=== PATIENT | female | born 1960 | race Caucasian/White ===

== ENCOUNTER → 2017-11-15 | Outpatient (CLI) | payer OTHER, SELFPAY | DX: R56.9 Unspecified convulsions (principal); Z79.899 Other long term (current) drug therapy; Z51.81 Encounter for therapeutic drug level monitoring | CPT/HCPCS: 36415; 80053; 80177; 85025 ==

== ENCOUNTER 2025-11-19 09:52 | Outpatient (CLI) | payer OTHER, MEDICARE, SELFPAY ==
--- OUTSIDE RECORDS SUMMARY | 2025-11-08 10:15 | XMS_ITS | Encounter Summary ---
Author Organization [employer] ([place], [place], [place], [place], [place]) Address [address] [place] [address] Care Team Providers Care Oracle Database Analyst Name Role Phone Martell Ventura MD Primary Care Provider [phone] Reason for Visit * Reason Comments Seizures Encounter Details Date Type Department Care Team (Late st Contact Info) Description 11/08/2025 10:15 AM EST Office Visit [facility] - [facility] [address] [facility] [address] [place] [address] Elizabeth Kirkpatrick MD [address] [facility] [address] [place] [address] B12 deficiency (Primary Dx); Seizure (HCC); Vitamin D deficiency; Polyneuropathy Social History Tobacco Use Types Packs/Day Years Used Date Smoking Tobacco: Never Smokeless Tobacco: Never Tobacco Cessation:Counseling Given: Not Answered Alcohol Use Standard Drinks/Week Comments Yes 0 (1 standard drink = 0.6 oz pur e alcohol) Family and Community Support Answer Allen e Recorded Help with Day to Day Activities Not on file 12/05/2023 Feeling Lonely or Isolated Not on file 12/05 Educational Attainment Answer Date Abelardo rded Speak language other than Singaporean at home Not on file 12/05/2023 Want help with school or training Not on file 12/05/2023 Substance Use Answer Date Recorded Used prescription meds for non-medical reasons N ot on file 12/05/2023 Used illegal drugs past 12 months Not on file 12/05/2023 Comments Unknown Sex and Gender Information Value Date Recorded Sex Assigned at Not on file Legal Sex Female 4:58 PM CDT Gender Identity Not on file Sexual Orientation Not on file documented as of this encounter Last Filed Vital Signs Vital Sign Reading Time Taken Comments Blood Pressure 171/85 11/08/2025 10:21 AM EST Pulse 69 11/08/2025 10:21 AM EST Temperature - - Respiratory Rate - - Oxygen Saturation - - Inhaled Oxygen Concentration - - Weight 62.1 kg (137 lb) 11/08/2025 10:21 AM EST Height 152.4 cm (5') 11/08/2025 10:21 AM EST Body Mass Index 26.76 11/08/2025 10:21 AM EST documented in this encounter Functional Status * BP Answer Date of Assessment Author 17111/08/2025 10:21 AM Mary Juarez CMA * Pulse Answer Date of Assessment Author 69 11/08/2025 10:21 AM Mary Juarez CMA * Height Answer Date of Assessment Author 60 11/08/2025 10:21 AM Mary Juarez CMA * Weight Answer Date of Assessment Author 2192 11/08/2025 10:21 AM Mary Juarez ACADEMIC DEAN * Tidal Volume Answer Date of Assessment Author 270 11/08/2025 10:21 AM Mary Juarez CMA * Shock Index Answer Date of Assessment Author 0.4 11/08/2025 10:21 AM Mary Juarez ACADEMIC DEAN * BMI (Calculated) Answer Date of Assessment Author 26.8 11/08/2025 10:21 AM Mary Juarez CMA * BP Answer Date of Assessment Author 17111/08/2025 10:21 AM Mary Juarez ACADEMIC DEAN * Pulse Answer Date of Assessment Author 69 11/08/2025 10:21 AM Mary Juarez CMA * BMI (Calculated) Answer Date of Assessment Author 26.8 11/08/2025 10:21 AM Mary Juarez ACADEMIC DEAN documented as of this encounter Mental Status * BP Answer Entry Date Author 17111/08/2025 10:21 AM Mary Juarez ACADEMIC DEAN * Pulse Answer Entry Date Author 69 11/08/2025 10:21 AM Mary Juarez CMA * Height Answer Entry Date Author 60 11/08/2025 10:21 AM Mary Juarez CMA * Weight Answer Entry Date Author 2192 11/08/2025 10:21 AM Mary Juarez CMA * Tidal Volume Answer Entry Date Author 270 11/08/2025 10:21 AM Mary Juarez CMA * Shock Index Answer Entry Date Author 0.4 11/08/2025 10:21 AM Mary Juarez CMA * BMI (Calculated) Answer Entry Date Author 26.8 11/08/2025 10:21 AM Mary Juarez CMA documented in this encounter Progress Notes * Elizabeth Kirkpatrick MD - 11/08/2025 10:15 AM EST Subjective Argelia Gordon is a 65 y.o. female Chief Complaint Patient presents with Seizures I have reviewed and/or updated the following: Tobacco Allergies Meds Problems Med Hx Surg Hx Fam Hx History of Present Illness She has a history of epilepsy. Well controlled on Keppra and Vimpat. No adverse reactions. Has been under stress. She is taking care of mother who has colon cancer. Sleep is good No new health issues. Review of Systems Neurological: Positive for seizures. All other systems reviewed and are negative. . Radiology Results (last 7 days) No results found for the last 168 hours. No visits with results within 1 Day(s) from this visit. Latest known visit with results is: Office Visit on 10/08/2023 Component Date Value Ref Range Status Vitamin D, 25-Hydroxy 10/08/2023 26.2 (L) 30.0 - 100.0 ng/mL Final Comment: Vitamin D deficiency has been defined by the [place] of Medicine and an Endocrine Society practice guideline as a level of serum 25-OH vitamin D less than 20 ng/mL (1,2). The Endocrine Society went on to further define vitamin D insufficiency as a level between 21 and 29 ng/mL (2). 1. IOM ([place] of Medicine). 2010. Dietary reference intakes for calcium and D. [place]: The National Academies Press. 2. Timo MF, Cachorro NC, Gerald HAGAN, et al. Evaluation, treatment, and prevention of vitamin D deficiency: an Endocrine Society clinical practice guideline. JCEM. 2010; 96(7):1911-30. Vitamin B12 10/08/2023 >2000 (H) 232 - 1245 pg/mL Final Folate (Folic Acid), Serum 10/08/2023 >20.0 >3.0 ng/mL Final Comment: A serum folate concentration of less than 3.1 ng/mL is considered to represent clinical deficiency. Glucose, Serum 10/08/2023 96 70 - 99 mg/dL Final BUN 10/08/2023 13 8 - 27 mg/dL Final Creatinine, Serum 10/08/2023 0.83 0.57 - 1.00 mg/dL Final EGFR 10/08/2023 79 >59 mL/min/1.73 Final BUN/Creatinine Ratio 10/08/2023 16 12 - 28 Final Sodium, Serum 10/08/2023 141 134 - 144 mmol/L Final Potassium, Serum 10/08/2023 4.4 3.5 - 5.2 mmol/L Final Chloride, Serum 10/08/2023 101 96 - 106 mmol/L Final Carbon Dioxide, Total 10/08/2023 26 20 - 29 mmol/L Final Calcium, Serum 10/08/2023 9.7 8.7 - 10.3 mg/dL Final Protein, Total, Serum 10/08/2023 7.3 6.0 - 8.5 g/dL Final Albumin, Serum 10/08/2023 4.7 3.9 - 4.9 g/dL Final Globulin, Total 10/08/2023 2.6 1.5 - 4.5 g/dL Final A/G Ratio 10/08/2023 1.8 1.2 - 2.2 Final Bilirubin, Total 10/08/2023 0.3 0.0 - 1.2 mg/dL Final Alkaline Phosphatase, S 10/08/2023 125 (H) 44 - 121 IU/L Final AST (SGOT) 10/08/2023 20 0 - 40 IU/L Final ALT (SGPT) 10/08/2023 14 0 - 32 IU/L Final Results Objective BP (!) 171/85 Pulse 69 Ht 1.524 m (5') Wt 62.1 kg (137 lb) BMI 26.76 kg/m?? Neurological Exam Mental Status Awake, alert and oriented to person, place and time. Speech is normal. Language is fluent with no aphasia. Attention and concentration are normal. Fund of knowledge is appropriate for level of education. Cranial Nerves CN II: Visual acuity is normal. Visual bobo full to confrontation. CN III, IV, : Extraocular movements intact bilaterally. Normal lids and orbits bilaterally. Pupils equal round and reactive to light bilaterally. CN V: Facial sensation is normal. CN VII: Full and symmetric facial movement. CN VIII: Hearing is normal. CN IX, X: Palate elevates symmetrically. Normal gag reflex. CN XI: Shoulder shrug strength is normal. CN XII: Tongue midline without atrophy or fasciculations. Motor Normal muscle bulk throughout. Normal muscle tone. Strength is 5/5 throughout all four extremities. Sensory Light touch is normal in upper and lower extremities. Reflexes Right Plantar: downgoing Left Plantar: downgoing Coordination [id number], rapid alternating movements and pqlb-[id number] normal bilaterally without dysmetria. Gait Casual gait is normal including stance, stride, and arm swing. Able to rise from chair without using arms. Physical Exam Vitals and nursing note reviewed. Constitutional: Appearance: Normal appearance. Eyes: General: Lids are normal. Extraocular Movements: Extraocular movements intact. Conjunctiva/sclera: Conjunctivae normal. Pupils: Pupils are equal, round, and reactive to light. Cardiovascular: Rate and Rhythm: Normal rate and regular rhythm. Pulmonary: Effort: Pulmonary effort is normal. Breath sounds: Normal breath sounds. Musculoskeletal: Cervical back: Normal range of motion and neck supple. Skin: General: Skin is warm and dry. Neurological: Motor: Motor strength is normal. Coordination: Coordination is intact. Psychiatric: Mood and Affect: Mood normal. Speech: Speech normal. Behavior: Behavior normal. Thought Content: Thought content normal. Judgment: Judgment normal. Assessment & Plan Seizures completely controlled on Vimpat and keppra. Will recheck vitamin levels - has h/o vitamin deficiencies in past. Diagnoses and all orders for this visit: B12 deficiency - levETIRAcetam (KEPPRA) 1000 MG tablet; Take 1 tablet (1,000 mg total) by mouth 2 (two) times daily MOUTH TWICE. - Vitamin B12 w reflex <400 - Vitamin D, 25-Hydroxy - Folate, Serum - Comprehensive metabolic panel Seizure (HCC) - levETIRAcetam (KEPPRA) 1000 MG tablet; Take 1 tablet (1,000 mg total) by mouth 2 (two) times daily MOUTH TWICE. - Vitamin B12 w reflex <400 - Vitamin D, 25-Hydroxy - Folate, Serum - Comprehensive metabolic panel - lacosamide (VIMPAT) 150 mg tab; Take 1 tablet (150 mg total) by mouth 2 (two) times daily MOUTH TWICE. Vitamin D deficiency - levETIRAcetam (KEPPRA) 1000 MG tablet; Take 1 tablet (1,000 mg total) by mouth 2 (two) times daily MOUTH TWICE. - Vitamin B12 w reflex <400 - Vitamin D, 25-Hydroxy - Folate, Serum - Comprehensive metabolic panel Polyneuropathy - Vitamin B12 w reflex <400 - Vitamin D, 25-Hydroxy - Folate, Serum - Comprehensive metabolic panel Return in about 6 months (around 05/09/2026). 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 [address] [place] [address] Scheduled Orders Name Type Priority Associated Diagnoses Orde r Schedule Vitamin B12 w reflex <400 Lab Routine Seizure (HCC) B12 deficiency Vitamin D deficiency Polyneuropathy Ordered: 11/08/2025 Vitamin D, 25-Hydroxy Lab Routine Seizure (HCC) B12 deficiency Vitamin D deficiency Polyneuropathy Ordered: 11/08/2025 Folate, Serum Lab Routine Seizure (HCC) B12 deficiency Vitamin D deficiency Polyneuropathy Ordered: 11/08/2025 Comprehensive metabolic panel Lab Routine Seizure (HCC) B12 deficiency Vitamin D deficiency Polyneuropathy Ordered: 11/08/2025 documented as of this encounter Visit Diagnoses Diagnosis B12 deficiency- Primary Seizure (HCC) Other convulsions Vitamin D deficiency Unspecified vitamin D deficiency Polyneuropathy Unspecified hereditary and idiopathic peripheral neuropathy documented in this encounter Care Teams Oracle Database Analyst Relationship Specialty Start Date End Date Martell Ventura MD [address] [place] [address] [place] [address] PCP - General Adolescent Medicine 10/08/23 documented as of this encounter
--- OUTSIDE RECORDS SUMMARY | 2025-11-19 10:10 | XMS_ITS | Clinical Summary ---
Author Organization [employer] ([place], [place], [place], [place], [place]) Address [address] [place] [address] Care Team Providers Care Tree Trimming Line Technician Name Role Phone Martell Ventura MD Primary Care Provider [phone] Allergies Active Allergy Reactions Criticality Noted Date Comments Penicillin 11/06/2022 Medications cyanocobalamin (VITAMIN B-12) 1,[address] 1 tablet (1,000 mcg total) under the tongue daily. Active cholecalciferol , vitamin D3, 25 mcg (1,000 unit) capsule Take 1 capsule (1,000 Units total) by mouth daily. Active folic acid (FOLVITE) 1 MG tabletIndicatio ns:Healthcare maintenance TAKE ONE TABLET BY MOUTH EVERY DAY 90 tablet 11/01/20 25 Active levETIRAcetam (KEPPRA) 1000 MG tabletIndicatio ns:Seizure (HCC),B12 deficiency,Letty min D deficiency Take 1 tablet (1,000 mg total) by mouth 2 (two) times daily MOUTH TWICE. 180 tablet 3 11/08/20 25 Active lacosamide (VIMPAT) 150 mg tabIndications: Seizure (HCC) Take 1 tablet (150 mg total) by mouth 2 (two) times daily MOUTH TWICE. 180 tablet 11/08/20 25 Active levETIRAcetam (KEPPRA) 1000 MG tabletIndicatio ns:Seizure (HCC) Take 1 tablet (1,000 mg total) by mouth 2 (two) times daily. 180 tablet 3 10/27/20 24 025 Discontinued folic acid (FOLVITE) 1 MG tabletIndicatio ns:Healthcare maintenance Take 1 tablet (1 mg total) by mouth daily. 90 tablet 3 12/01/19 25 025 Discontinued lacosamide (Vimpat) 150 mg tabIndications: Seizure (HCC) Take 1 tablet (150 mg total) by mouth 2 (two) times daily. Max Daily Amount: 300 mg 180 tablet 1 05/04/20 25 025 Discontinued levETIRAcetam (KEPPRA) 1000 MG tabletIndicatio ns:Seizure (HCC) TAKE ONE TABLET BY MOUTH TWICE DAILY 180 tablet 11/01/20 25 025 Discontinued(Re order) lacosamide (VIMPAT) 150 mg tabIndications: Seizure (HCC) TAKE ONE TABLET BY MOUTH TWICE DAILY 180 tablet 11/02/20 25 025 Discontinued(Re order) lacosamide (VIMPAT) 150 mg tabIndications: Seizure (HCC) Take 1 tablet (150 mg total) by mouth 2 (two) times daily MOUTH TWICE. 180 tablet 11/02/20 25 025 Discontinued(Re order) Active Problems No known active problems Encounters Date Type Department Care Team Description 11/08/2025 10:15 AM EST Office Visit [facility] Neurology - [place] [phone] Elizabeth Kirkpatrick MD B12 deficiency (Primary Dx); Seizure (HCC); Vitamin D deficiency; Polyneuropathy 11/08/2025 Travel from Last 3 Months Family History Medical History Relation Name Comments No Known Problem Father No Known Problem Mother Relation Name Status Comments Father Mother Social History Tobacco Use Types Packs/Day Years [...] Date Abelardo rded Speak language other than Turkish at home Not on file 12/05/2023 Want [...] on file Sexual Orientation Not on file Last Filed Vital Signs Vital Sign Reading Time Taken Comments Blood Pressure 171/85 11/08/2025 10:21 AM EST Pulse 69 11/08/2025 10:21 AM EST Temperature - - Respiratory Rate - - Oxygen Saturation 95% 04/22/2024 9:33 AM EDT Inhaled Oxygen Concentration - - Weight 62.1 kg (137 lb) 11/08/2025 10:21 AM EST Height 152.4 cm (5') 11/08/2025 10:21 AM EST Body Mass Index 26.76 11/08/2025 10:21 AM EST Plan of Treatment Upcoming Encounters Date Type Department Care Team (Late st Contact Info) Description 05/16/2026 10:45 AM EDT Office Visit [facility] Neurology - [address] [place] [phone] Elizabeth Kirkpatrick MD [address] [facility] [address] [place] [address] Health Maintenance Due Date Last Done Comments CT Colonography 1959 Colonoscopy 1959 Colorectal Cancer Screening 1959 DXA SCAN 1959 FOBT/FIT 1959 Fit-DNA (Cologuard) 1959 Sigmoidoscopy 1959 Depression Screening (12+) 1971 Hepatitis C Screening 1977 DTAP/TDAP/TD VACCINES (1 - Tdap) 1978 Breast Cancer Screening 1999 Pneumococcal 50+ years (1 of 1 - PCV) 2009 Shingles Vaccine (Zoster) (1 of 2) 2009 Falls Risk Screening 11/24/2024 COVID-19 VACCINE (6 - 2024-2 6 season) 2025 09/17/2022, 04/25/2022, 08/23/2021, Additional history exists Influenza Vaccine (#1) 2025 Medicare Initial AWV [id number] 07/26/2025 Tobacco Cessation Counseling and Screening (12+) 11/08/2026 11/08/2025 Respiratory Syncytial Virus (RSV) Adult or (1 - 1-dose 75+ series) 2034 Insurance [facility] MEDICARE HMO Care Teams Tree Trimming Line Technician Relationship Specialty Start Date End Date Martell Ventura MD [address] [place] [address] PCP - General Adolescent Medicine 10/08/23
--- OUTSIDE RECORDS SUMMARY | 2025-11-19 10:10 | XMS_ITS | Encounter Summary ---
Author Organization [employer] ([place], [place], [place], [place], [place]) Address [address] [place] [address] Care Team Providers Care Asphalt Plant Laborer Name Role Phone Martell Ventura MD Primary Care Provider + [phone] Encounter Details Date Type Department Care Team (Latest Contact Info) Description 11/08/2025 Travel Social History Tobacco Use Types Packs/Day Years Used Date Smoking Tobacco: Never Smokeless Tobacco: Never Alcohol Use Standard Drinks/Week Comments Yes 0 (1 standard drink = 0.6 oz pur e alcohol) Family and Community Support Answer Allen e Recorded Help with Day to Day Activities Not on file 12/05/2023 Feeling Lonely or Isolated Not on file 12/05 Educational Attainment Answer Date Abelardo rded Speak language other than Namibian at home Not on file 12/05/2023 Want [...] on file documented as of this encounter Functional Status * Communicable Disease Screening Question Answer Date of Assessment Author Have you been in contact wit h someone who was sick? No / Unsure 11/08/2025 9:50 AM Antonina Christopher Do you have any of the follo wing new or worsening symptoms? None of these 11/08/2025 9:50 AM Rusty Christopher documented as of this encounter Plan of Treatment Upcoming Encounters Date Type Department Care Team (Late st Contact Info) Description 05/16/2026 10:45 AM EDT Office Visit [facility] Neurology - [place] [address] [place] [phone] Elizabeth Kirkpatrick MD [address] [place] [address] documented as of this encounter Visit Diagnoses Not on filedocumented in this encounter Care Teams Asphalt Plant Laborer Relationship Specialty Start Date End Date Martell Ventura MD [address] [place] [address] [place] [address] PCP - General Adolescent Medicine 10/08/23 documented as of this encounter
--- OUTSIDE RECORDS SUMMARY | 2025-11-19 10:11 | XMS_ITS | Referral Summary ---
Author Organization [employer] ([place], [place], [place], [place], [place]) Address [address] [place] [address] Care Team Providers Care Public Records Officer Name Role Phone Martell Ventura MD Primary Care Provider [phone] Encounters Date Type Department Care Team Description 11/08/2025 Travel 11/08/2025 10:15 AM EST Office Visit [facility] Neurology [address] [place] [address] Elizabeth Kirkpatrick MD B12 deficiency (Primary Dx); Seizure (HCC); Vitamin D deficiency; Polyneuropathy from Last 3 Months Allergies Active Allergy Reactions Criticality Noted Date [...] order) Active Problems No known active problems Social History Tobacco Use Types Packs/Day Years [...] Date Abelardo rded Speak language other than Bulgarian at home Not on file 12/05/2023 Want [...] Description 05/16/2026 10:45 AM EDT Office Visit [facility] Neurology - [address] [place] [address] [place] [address] Elizabeth Kirkpatrick MD [address] [place] [address] [facility] MEDICARE HMO Care Teams Public Records Officer Relationship Specialty Start Date End Date Martell Ventura MD [address] [place] [address] PCP - General Adolescent Medicine 10/08/23
[2025-11-19 12:42] LABS: 25-OH Vitamin D, Total 55.7 ng/mL (30-100)
[2025-11-19 18:14] LABS: Vitamin B12 876 pg/mL (239-931)
== END 2025-11-19 23:59 | disposition home or self-care (01) ==
LOC: LAB 10:09
PROVIDERS: PCP Internal Medicine Adolescent Medicine; Visit Provider Psychiatry & Neurology Neurology
DX: E55.9 Vitamin D deficiency, unspecified (principal); E53.8 Deficiency of other specified B group vitamins; G62.9 Polyneuropathy, unspecified; R56.9 Unspecified convulsions
CPT/HCPCS: 36415; 82306; 82607